=== PATIENT | female | born 1980 | race Caucasian/White ===

== ENCOUNTER 2019-11-20 14:36 | Outpatient (REF) | payer OTHER, SELFPAY ==
[2019-11-21 11:05] LABS: CT PCR DETECTED (Not Detect.); NG PCR NOT DETECTED (Not Detect.)
[2019-11-21 11:26] LABS: BV Int Neg Control Negative (Negative); BV Int Pos Control Positive (Positive)
[2019-11-22 23:36] LABS: HPV mRNA E6/E7 Not Detected (Not Detected)
== END 2019-11-20 14:37 | disposition home or self-care (01) ==
LOC: HO.LNP 14:36
PROVIDERS: PCP Internal Medicine; Referring Provider Internal Medicine; Visit Provider Obstetrics & Gynecology
DX: Z01.419 Encounter for gynecological examination (general) (routine) without abnormal findings (principal); Z11.3 Encounter for screening for infections with a predominantly sexual mode of transmission; Z11.8 Encounter for screening for other infectious and parasitic diseases
CPT/HCPCS: 36415; 87480; 87491; 87510; 87591; 87624; 87625; 87660; 88141; 88142

== ENCOUNTER 2020-01-03 14:33 | Outpatient (REF) | payer OTHER, SELFPAY ==
[2020-01-04 10:59] LABS: BV Int Neg Control Negative (Negative); BV Int Pos Control Positive (Positive)
[2020-01-04 11:02] LABS: CT PCR NOT DETECTED (Not Detect.); NG PCR NOT DETECTED (Not Detect.)
== END 2020-01-03 14:34 | disposition home or self-care (01) ==
LOC: HO.LAB 14:33
PROVIDERS: Visit Provider Obstetrics & Gynecology
DX: R87.610 Atypical squamous cells of undetermined significance on cytologic smear of cervix (ASC-US) (principal); Z11.3 Encounter for screening for infections with a predominantly sexual mode of transmission
CPT/HCPCS: 57454; 87480; 87491; 87510; 87591; 87660; 88305

== ENCOUNTER → 2020-01-17 12:08 | Outpatient (BNVA) | payer OTHER, SELFPAY | PROVIDERS: Visit Provider Obstetrics & Gynecology | DX: Z76.89 Persons encountering health services in other specified circumstances (principal) ==

== ENCOUNTER 2020-02-20 14:17 | Outpatient (REF) | payer OTHER, SELFPAY ==
[2020-02-21 09:10] LABS: BV Int Neg Control Negative (Negative); BV Int Pos Control Positive (Positive)
[2020-02-22 21:32] LABS: C. trachomatis RNA TMA NOT DETECTED (NOT DETECTED); N. gonorrhoeae RNA TMA NOT DETECTED (NOT DETECTED)
== END 2020-02-20 14:18 | disposition home or self-care (01) ==
LOC: HO.LAB 14:17
PROVIDERS: PCP Internal Medicine; Visit Provider Obstetrics & Gynecology
DX: Z11.3 Encounter for screening for infections with a predominantly sexual mode of transmission (principal)
CPT/HCPCS: 36415; 87480; 87491; 87510; 87591; 87660

== ENCOUNTER → 2020-04-15 11:54 | Outpatient (BNVA) | payer OTHER, SELFPAY | PROVIDERS: PCP Internal Medicine; Visit Provider Obstetrics & Gynecology ==

== ENCOUNTER 2020-04-23 12:50 | Outpatient (REF) | payer OTHER, SELFPAY ==
--- NOTE | ~2020-04-23 | US_ITS ---
EXAMINATION: US PELVIS COMPLETE CLINICAL INFORMATION: Check for IUD. COMPARISON: Ultrasound pelvis 12/15/2018 TECHNIQUE: Transabdominal and transvaginal ultrasound of the pelvis is performed. FINDINGS: On transabdominal ultrasound, the uterus is anteverted and anteflexed measuring 8.8 cm in length, 4.3 cm in AP and 5.8 cm in transverse dimension. Endometrial thickness is 0.8 cm. The uterus is homogeneous in echotexture. There is an intrauterine contraceptive device in correct position. Small nabothian cysts are seen in the cervix. Right ovary measures 4.0 x 1.1 x 2.2 cm and volume 5.1 mL. There is an anechoic corpus luteal cyst measuring 2.4 x 1.2 x 1.8 cm. In addition, there is a lesion with echogenic wall likely corpus luteal scar measuring 0.6 x 0.5 x 0.6 cm. Previously, right ovary measured 3.1 x 2.3 x 2.4 cm. The left ovary measures 3.7 x 1.4 x 2.5 cm and volume 6.8 mL. There is a small simple cyst measuring 2.7 x 1.7 x 2.4 cm. Previously, the left ovary measured 3.0 x 1.6 x 1.9 cm. There is a small amount of free fluid in the cul-de-sac. US/US pelvic complete IMPRESSION: Intrauterine IUD is in correct position. Small nabothian cysts seen in the cervix. There is a simple cyst left ovary and a corpus luteal cyst right ovary. There is a corpus luteal scar with a corpus luteal cyst in right ovary. There is a small amount of free fluid in the cul-de-sac.
--- NOTE | ~2020-04-23 | US_ITS ---
EXAMINATION: US PELVIS COMPLETE CLINICAL INFORMATION: Check for IUD. COMPARISON: Ultrasound pelvis 12/15/2018 TECHNIQUE: Transabdominal and transvaginal ultrasound of the pelvis is performed. FINDINGS: On transabdominal ultrasound, the uterus is anteverted and anteflexed measuring 8.8 cm in length, 4.3 cm in AP and 5.8 cm in transverse dimension. Endometrial thickness is 0.8 cm. The uterus is homogeneous in echotexture. There is an intrauterine contraceptive device in correct position. Small nabothian cysts are seen in the cervix. Right ovary measures 4.0 x 1.1 x 2.2 cm and volume 5.1 mL. There is an anechoic corpus luteal cyst measuring 2.4 x 1.2 x 1.8 cm. In addition, there is a lesion with echogenic wall likely corpus luteal scar measuring 0.6 x 0.5 x 0.6 cm. Previously, right ovary measured 3.1 x 2.3 x 2.4 cm. The left ovary measures 3.7 x 1.4 x 2.5 cm and volume 6.8 mL. There is a small simple cyst measuring 2.7 x 1.7 x 2.4 cm. Previously, the left ovary measured 3.0 x 1.6 x 1.9 cm. There is a small amount of free fluid in the cul-de-sac. US/US transvaginal IMPRESSION: Intrauterine IUD is in correct position. Small nabothian cysts seen in the cervix. There is a simple cyst left ovary and a corpus luteal cyst right ovary. There is a corpus luteal scar with a corpus luteal cyst in right ovary. There is a small amount of free fluid in the cul-de-sac.
== END 2020-04-23 12:51 | disposition home or self-care (01) ==
LOC: HO.US 12:50
PROVIDERS: PCP Internal Medicine; Visit Provider Obstetrics & Gynecology
DX: Z30.431 Encounter for routine checking of intrauterine contraceptive device (principal)
CPT/HCPCS: 76830; 76856

== ENCOUNTER → 2020-04-30 11:41 | Outpatient (BNVA) | payer OTHER, SELFPAY | PROVIDERS: PCP Internal Medicine; Visit Provider Obstetrics & Gynecology ==

== ENCOUNTER → 2020-05-15 09:05 | Outpatient (BNVA) | payer OTHER, SELFPAY | PROVIDERS: PCP Internal Medicine; Visit Provider Obstetrics & Gynecology ==